=== PATIENT | female | born 1945 | race Caucasian/White ===

== ENCOUNTER 2020-03-17 10:13 | Outpatient (CLI) | payer MEDICARE, BC ==
[2020-03-17 10:51] LABS: Estimated GFR-MDRD - POC Greater than 90
--- NOTE | 2020-03-17 11:06 | CT ---
EXAM: CTA of the chest HISTORY: Atrial fibrillation. Left atrial appendage occlusive device placement. COMPARISON: None TECHNIQUE: Multiple contiguous axial images were obtained a CTA of the chest with contrast per left a trial appendage protocol. Sagittal and coronal 3-D MIP reformats reformats were performed. FINDINGS: HEART: Normal in size without focal cardiac abnormality. There is adequate opacification of the left atrium. An occlusive device is seen within the left atria l appendage. No contrast is seen behind the occlusive device in the atrial appendage. MEDIASTINUM: No hilar or mediastinal lymphadenopathy. LUNGS: A calcified granuloma is seen in the right middle lobe. Increased interstitial lung markings a re seen in the lingula and right middle lobe. A calcified granuloma is seen in the left lower lobe. PLEURAL SPACE: No pleural effusion or pneumothorax. CHEST WALL SOFT TISSUES: Unremarkable VISUALIZED OSSEOUS STRUCTURES: Degenerative changes in the spine. VISUALIZED SUBDIAPHRAGMATIC STRUCTURES: Unremarkable IMPRESSION: Appropriate occlusion of left atrial appendage by occlusive device.
[2020-03-17] MEDS ORDERED: Iopamidol-370 76% 500 ML 1 ML ONE (15:40)
== END 2020-03-17 10:14 | disposition home or self-care (01) ==
LOC: BICCT 10:13
PROVIDERS: ATTEND Internal Medicine Cardiovascular Disease
DX: I48.11 Longstanding persistent atrial fibrillation (principal); Z95.818 Presence of other cardiac implants and grafts
CPT/HCPCS: 71275; 82565; Q9967

== ENCOUNTER 2021-02-16 09:35 | Outpatient (CLI) | payer MEDICARE, BC | END 2021-02-16 09:36 | disposition home or self-care (01) | LOC: RAD 09:35 | PROVIDERS: ATTEND Family Medicine | DX: R13.10 Dysphagia, unspecified (principal); K21.9 Gastro-esophageal reflux disease without esophagitis | CPT/HCPCS: 74220 ==

== ENCOUNTER 2021-12-22 13:23 | Outpatient (CLI) | payer MEDICARE, BC ==
[2021-12-22 15:18] LABS: #Eosinphils 0.3 10x3/uL (0.0-0.5); #Monocytes 0.7 10x3/uL (0.0-1.1); #Neutrophils 3.2 10x3/uL (1.5-8.4); %Basophils 0.7 % (0.0-2.0); %Eosinophils 5.3 % (0.0-6.0); %Lymphocytes 26.1 % (18.0-47.0); %Monocytes 12.3 % (0.0-10.0); %Neutrophils 55.4 % (40.0-75.0); Hemoglobin 14.4 g/dL (12.0-15.5); Mean Corpuscular HGB CONC 34.2 g/dL (32.0-36.0); Mean Corpuscular Hemoglobin 30.8 pg (27.0-33.0); Mean Corpuscular Volume 90.1 fl (81.6-98.3); Mean Platelet Volume 10.8 fl (7.4-10.4); Platelet Count 189 10x3/uL (150-450); RBC Distribution Width 13.5 % (11.5-14.5); Red Blood Cell (RBC) Count 4.67 10x6/uL (3.90-5.03); White Blood Cell (WBC) Count 5.7 10x3/uL (3.5-10.5)
[2021-12-22 15:31] LABS: Anion Gap 13 mmol/L (10-20); BUN (Urea Nitrogen) 29 mg/dL (9.8-20.1); Calc. Creatinine Clearance 0 mL/min (70-130); Calcium 9.3 mg/dL (7.8-10.44); Carbon Dioxide 30 mmol/L (23-31); Chloride 95 mmol/L (98-107); Glucose 74 mg/dL (83-110); Potassium 4.6 mmol/L (3.5-5.1); Sodium 133 mmol/L (136-145)
[2021-12-23 00:29] LABS: SARS-CoV-2 PCR by NAA Not Detected (NotDetected)
== END 2021-12-22 13:24 | disposition home or self-care (01) ==
LOC: LABBT 13:23
PROVIDERS: ATTEND Orthopaedic Surgery
DX: Z01.818 Encounter for other preprocedural examination (principal); M16.12 Unilateral primary osteoarthritis, left hip; Z20.822 Contact with and (suspected) exposure to COVID-19
CPT/HCPCS: 80048; 85025; 85610; 87081; 93005; U0003; U0005; 93010

== ENCOUNTER 2021-12-27 05:23 | Inpatient (IN) | payer MEDICARE, BC ==
[2021-12-27] MEDS ORDERED: fentaNYL Citrate/PF 100 MCG/2 ML SYRINGE ONE (06:01)
[2021-12-27] MEDS ORDERED: Tranexamic Acid 1,000 MG/10 ML VIAL ONE (06:07)
[2021-12-27] MEDS ORDERED: Vancomycin 1 GM/200 ML BAG ONE (06:07)
[2021-12-27] MEDS ORDERED: Sodium Chloride 0.9% 100 ML ONE (06:07)
[2021-12-27] MEDS ORDERED: ceFAZolin (BATCH) 2 GM/100 ML BAG ONE (06:56)
[2021-12-27] MEDS ORDERED: diphenhydrAMINE 25 MG CAP PO PRN (07:02)
[2021-12-27] MEDS ORDERED: Ondansetron PF 4 MG/2 ML Vial IVP PRN (07:02)
[2021-12-27] MEDS ORDERED: Acetaminophen 325 MG TAB PO PRN (07:02)
[2021-12-27] MEDS ORDERED: traMADol HCl 50 MG TAB PO PRN ×2 (07:02)
[2021-12-27] MEDS ORDERED: Zolpidem Tartrate 5 MG TAB PO PRN (07:02)
[2021-12-27] MEDS ORDERED: HYDROcodone/Acetaminophen 10/325 mg Tablet PO PRN (07:02)
[2021-12-27] MEDS ORDERED: Promethazine HCl 25 MG/ML VIAL IM PRN ×2 (07:02→08:38)
[2021-12-27] MEDS ORDERED: Polyvinyl Alcohol 1.4%/Povidone 0.6% Opth Drops EA EYE PRN (07:04)
[2021-12-27] MEDS ORDERED: EPINEPHrine 1 MG/ML AMP ONE (07:09)
[2021-12-27] MEDS ORDERED: Estrogens, Conjugated 30 GM TUBE VAG SCH (07:15)
[2021-12-27] MEDS ORDERED: Ketorolac Tromethamine 30 MG/ML VIAL ONE (07:32)
[2021-12-27] MEDS ORDERED: Bupivacaine HCl 0.5%/Epinephrine 1:200,000/PF 30 ml Vial ONE (07:32)
[2021-12-27] MEDS ORDERED: PROPOFOL 200 MG/20 ML VIAL ONE (07:32)
[2021-12-27] MEDS ORDERED: Bupivacaine PF 0.5% 30 ML VIAL ONE (07:39)
[2021-12-27] MEDS ORDERED: Ondansetron HCl/PF 4 MG/2 ML Vial IVP PRN (08:38)
[2021-12-27] MEDS ORDERED: Promethazine HCl 25 MG/ML VIAL IVPB PRN (08:38)
[2021-12-27] MEDS ORDERED: Aspirin 81 mg Enteric Coated Tablet PO SCH (09:00)
[2021-12-27] MEDS: Oxybutynin ER 5 MG TAB PO SCH (10:12)
[2021-12-27] MEDS: Polyethylene Glycol 3350 17 GM Packet PO SCH (10:15)
[2021-12-27] MEDS: Cholecalciferol 1,000 UNITS (25 MCG) TAB PO SCH (10:15)
[2021-12-27] MEDS: Potassium Chloride 20 MEQ TAB PO SCH (10:17)
[2021-12-27] MEDS: Sodium Chloride 0.9% 1,000 ML IV SCH ×3 (10:17→18:32)
[2021-12-27] MEDS: Gabapentin 100 MG CAP PO SCH ×2 (10:18→20:47)
[2021-12-27] MEDS: Spironolactone 25 MG TAB PO SCH (10:18)
[2021-12-27] MEDS: Aspirin 81 mg Enteric Coated Tablet PO SCH ×2 (10:19→20:47)
[2021-12-27] MEDS: Ascorbic Acid 500 mg Chewable Tablet PO SCH (10:19)
[2021-12-27] MEDS: Loratadine 10 MG TAB PO SCH (10:19)
[2021-12-27] MEDS: Ketorolac Tromethamine 30 MG/ML VIAL IVP SCH ×2 (14:38→21:15)
[2021-12-27] MEDS: ceFAZolin (BATCH) 2 GM in Premix Bag 1 BAG IVPB SCH ×2 (16:16→23:31)
[2021-12-27] MEDS: Baclofen 10 MG TAB PO SCH (20:48)
[2021-12-28] MEDS: Sodium Chloride 0.9% 1,000 ML IV SCH ×2 (05:26→14:20)
[2021-12-28] MEDS: Ketorolac Tromethamine 30 MG/ML VIAL IVP SCH ×3 (05:36→21:44)
[2021-12-28 05:42] LABS: Hemoglobin 11.3 g/dL (12.0-16.0); Mean Corpuscular HGB CONC 33.5 g/dL (32.0-36.0); Mean Corpuscular Hemoglobin 32.3 pg (27.0-31.0); Mean Corpuscular Volume 96.4 fL (78.0-98.0); Mean Platelet Volume 7.3 fL (7.4-10.4); Platelet Count 121 thou/uL (130-400); Red Blood Cell (RBC) Count 3.51 mill/uL (4.20-5.40); White Blood Cell (WBC) Count 6.7 thou/uL (4.8-10.8)
[2021-12-28] MEDS: Polyethylene Glycol 3350 17 GM Packet PO SCH (08:38)
[2021-12-28] MEDS: Ferrous Gluconate 324 MG TAB PO SCH ×2 (08:38→17:09)
[2021-12-28] MEDS: Potassium Chloride 20 MEQ TAB PO SCH (08:38)
[2021-12-28] MEDS: Oxybutynin ER 5 MG TAB PO SCH (08:39)
[2021-12-28] MEDS: Ascorbic Acid 500 mg Chewable Tablet PO SCH (08:39)
[2021-12-28] MEDS: Senokot S 8.6-50 MG TAB PO SCH ×2 (08:39→21:46)
[2021-12-28] MEDS: Aspirin 81 mg Enteric Coated Tablet PO SCH ×2 (08:39→21:46)
[2021-12-28] MEDS: Multivitamin W/ Minerals 1 TAB PO SCH (08:40)
[2021-12-28] MEDS: Spironolactone 25 MG TAB PO SCH (08:40)
[2021-12-28] MEDS: Cholecalciferol 1,000 UNITS (25 MCG) TAB PO SCH (08:41)
[2021-12-28] MEDS: Loratadine 10 MG TAB PO SCH (08:41)
[2021-12-28 14:50] VITALS: BMI 17.8
[2021-12-28] MEDS: Baclofen 10 MG TAB PO SCH (21:46)
[2021-12-29] MEDS: Sodium Chloride 0.9% 1,000 ML IV SCH ×2 (03:45→08:24)
[2021-12-29] MEDS: Ketorolac Tromethamine 30 MG/ML VIAL IVP SCH ×2 (05:58→15:43)
[2021-12-29 07:27] LABS: #Eosinphils 0.2 thou/uL (0.0-0.7); #Monocytes 0.6 thou/uL (0.11-0.59); #Neutrophils 5.2 thou/uL (1.40-6.50); %Basophils 0.3 % (0.0-1.0); %Eosinophils 2.5 % (0.0-10.0); %Lymphocytes 14.7 % (21.0-51.0); %Monocytes 8.8 % (0.0-10.0); %Neutrophils 73.7 % (42.0-75.0); Hemoglobin 10.6 g/dL (12.0-16.0); Mean Corpuscular HGB CONC 33.9 g/dL (32.0-36.0); Mean Corpuscular Hemoglobin 32.7 pg (27.0-31.0); Mean Corpuscular Volume 96.6 fL (78.0-98.0); Mean Platelet Volume 7.5 fL (7.4-10.4); Platelet Count 101 thou/uL (130-400); Red Blood Cell (RBC) Count 3.26 mill/uL (4.20-5.40)
[2021-12-29] MEDS: Multivitamin W/ Minerals 1 TAB PO SCH (09:59)
[2021-12-29] MEDS: Senokot S 8.6-50 MG TAB PO SCH (09:59)
[2021-12-29] MEDS: Aspirin 81 mg Enteric Coated Tablet PO SCH (09:59)
[2021-12-29] MEDS: Polyethylene Glycol 3350 17 GM Packet PO SCH (09:59)
[2021-12-29] MEDS: Oxybutynin ER 5 MG TAB PO SCH (09:59)
[2021-12-29] MEDS: Ferrous Gluconate 324 MG TAB PO SCH (10:00)
[2021-12-29] MEDS: Ascorbic Acid 500 mg Chewable Tablet PO SCH (10:00)
[2021-12-29] MEDS: Loratadine 10 MG TAB PO SCH (10:00)
[2021-12-29] MEDS: Cholecalciferol 1,000 UNITS (25 MCG) TAB PO SCH (10:00)
[2021-12-29] MEDS: Potassium Chloride 20 MEQ TAB PO SCH (10:01)
[2021-12-29] MEDS: Spironolactone 25 MG TAB PO SCH (10:01)
[2021-12-29 15:39] VITALS: BP 112/67; TEMP 98.7
== END 2021-12-29 16:02 | disposition home or self-care (01) | DRG 470 ==
LOC: SDC 05:23 → SJJU 07:02 → SDC 14:44 → OBSVTOIN 12-29 10:57
PROVIDERS: ADMIT Orthopaedic Surgery; ATTEND Orthopaedic Surgery
PROC: 0SRB03A Replacement of Left Hip Joint with Ceramic Synthetic Substitute, Uncemented, Open Approach (ICD-10-PCS; principal; 2021-12-27)
DX: M16.12 Unilateral primary osteoarthritis, left hip (principal); Z20.822 Contact with and (suspected) exposure to COVID-19; E78.5 Hyperlipidemia, unspecified; M47.812 Spondylosis without myelopathy or radiculopathy, cervical region; F41.9 Anxiety disorder, unspecified; I48.91 Unspecified atrial fibrillation; Z79.899 Other long term (current) drug therapy; Z79.82 Long term (current) use of aspirin; Z88.0 Allergy status to penicillin
CPT/HCPCS: 36415; 36416; 85025; 85027; 96365; 96375; 96376; C1776; G0378; J0171; J0690; J1885; J2704; J3370; J3490; J7050; S0020